=== PATIENT | male | born 1960 | race Caucasian/White ===

== ENCOUNTER 2019-07-15 14:04 | Inpatient (IN) | payer BC ==
[~2019-07-15] VITALS: Ht 182.9 cm; Wt 77.5 kg
[2019-07-15 13:35] VITALS: BP 131/95
--- NOTE | 2019-07-15 13:35 | NUR ---
PT ARRIVED FROM [facility]. PT WAS ADMITED FOR RECENT SI ATTEMPT. PT TOOK XANAX 0.5MG 70 TABS FOR RECENT BREAK-UP WITH , SHE LEFT 2 WEEKS AGO. PT STATED THAT HE WAS ABUSIVE. PT MADE SISTER DPOA AT [facility], HIS WAS PRIOR. PT DENIES ANY SI AT THIS TIME. PT PLEASANT AND ABLE TO ANSWER QUESTIONS. PT LAYED DOWN IN BED AND HAS EYES CLOSED. PT STATED HE DID HAVE ISSUES WITH TALKING LOUDLY, VERTIGO, AND NOT ABLE TO WALK. PT STATED NOW HE DOESN'T HAVE ANY OF THOSE SYMPTOMS, THEY WENT AWAY THIS WEEK. PT HAS GLASSES. PT DENIES ANY ISSUES WITH GI OR SYMPTOMS. SKIN INTACT. DENIES ANY SUBSTANCE ABUSE. STATED THIS WAS FIRST ATTACK.
--- NOTE | 2019-07-15 17:30 | NUR ---
PT DIDN'T WANT TO HAVE BED ALARM ON. PT STATED IF WE CAN'T TURN IT OFF COMPLETLEY HE CAN GO. ENSURED PT THAT BED AUTOMATICALY TURNS ON. PT STATED HE JUST DOESN'T WANT TO BOTHER ANYONE. PT VERY UNSTEADY ON FEET PER SISTER. PT ALMOST FEEL BACK ON A NURSE THIS SHIFT. PT UNSTEADY WITH GAIT. PT DIDN'T WANT TO EAT DINNER. PT DRINKING OUT OF A STRAW IN PITCHER, PT COUGHED AFTERWARDS. ENCOURAGED PT TO TILT CHIN DOWN WHEN SWALLOWING.
--- NOTE | 2019-07-16 02:46 | NUR ---
1909-Report received from day shift nurse and care assumed. Jamar was concerned about talking with her sister, and she did call him tonite, as he needs a cell phone bi consultant. He laid in his bed tonite, declined to come out of his room tonite for socialization or a snack, but he did drink water at his bedide. He talked in a loud voice when talking, denied any pain or any thoughts to harm himself or any depression. He was compliant with his HS medications after wanting and explained what the names were and the reason. He refused to allow help with getting into a gown tonite, sleeping in his clothing, after talking with him once again, saying "No, I am allright". He awakened at 0100 and said he had to call someone and asked if it was 6 oclock yet. A/O x 2/3, and noted confused/forgetful at times, not knowning how to put the phone to his ear the two times he used it. She slept sound tonite.
[2019-07-16 08:57] VITALS: BP 137/84
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
--- NOTE | 2019-07-16 11:10 | NUR ---
ASSUMED CARE AT 0700 THIS MORNING. ARGUMENATIVE WITH MEDICATIONS THIS MORNING. HE DID END UP TAKING HIS ORAL MEDICATIONS. HE REFUSED THE FLU SHOT AND THE SUPPOSITORY. HE DOES NOT LIKE THE BED ALARM ON BUT IS VERY UNSTEADY ON HIS FEET. HE WAS PLACED IN A W/C DUE TO HIS UNSTEADY GAIT. HE DID ACCEPT THE W/C A MEANS TO GET AROUND. DID NOT ATTEND MORNING GROUP BUT RETURNED TO HIS ROOM INSTEAD DURING THAT TIME. DOES ELUDE TO SI WHEN HE LEAVE HERE BUT DOES NOT STATE A DEFINITE PLAN AT THIS TIME. NO NOTICE OF HI OR AVH NOTED THIS MORNING.
[2019-07-16 19:53] VITALS: BP 136/70
[2019-07-16 19:55] VITALS: BP 157/99
[2019-07-16 22:04] VITALS: BP 157/99
--- NOTE | 2019-07-17 04:50 | NUR ---
ASSESSMENT: PT REMAIN ALERT AND ORIENT TIMES FOUR. DID NOT COME OUT OF ROOM DURING THIS SHIFT. DID GO TO THE BR WITH WALKER AND SBA. DENIES PAIN, SOB AND N/V. COMSULT FOR DR. TAMMY GONZALES, MESSAGE LEFT ON ANSWERING MACHINE. REFUSES FLU VACCINATION. SLOW PROGRESS TOWARDS DC GOALS, WILL CONTINUE TO MONITOR.
[2019-07-17 09:26] VITALS: BP 131/84
--- NOTE | 2019-07-17 15:50 | NUR ---
HOT PLATE PRESS OPERATOR charged patients cell phone without powering on, as he has requested access to his contact list to make phone calls. Patient informed his phone is now charged and back in his locker. Plans to ask for help to access contacts tomorrow 07/18.
--- NOTE | 2019-07-17 18:02 | NUR ---
ASSUMED CARE OF PATIENT AT 0715, PATIENT ALERT AND ORIENTED X 4. PATIENT HAS LEFT SIDE WEAKNESS, USES W/C TO GET AROUND. PT/OT WORKED WITH THE PATIENT TODAY. PATIENT DENIES PAIN THIS SHIFT. PATIENT OUT OF ROOM FOR MEALS, AND MOSTLY IN BED DURING THE DAY. PATIENT WAS CALM ALL SHIFT. WILL CONTINUE TO MONITOR.
[2019-07-17 19:32] VITALS: BP 142/93
--- NOTE | 2019-07-18 04:20 | NUR ---
1909-Report received by day shift nurse and care assumed. The pt. was in his room lying down, said he had a good day. He had no c.o. pain, was calm, cooperative, pleasant affect. He slept well tonite and used all fall prevention measures well.
--- NOTE | 2019-07-18 06:35 | NUR ---
The pt. had a moderate very loose brown-green stool this morning and said he wants his stool hardener today. (lactobacillus).
--- NOTE | 2019-07-18 07:13 | NUR ---
This morning the pt. was in the day room and drinking with a plastic cup he had gotten from his room. He saw it had initials on it and said this is not mine, go get mine". The TELEGRAPH EQUIPMENT MAINTAINER said I'll go get a new one which she did, and filled it up with ice water. He began then to shout at the TELEGRAPH EQUIPMENT MAINTAINER "I had diahhrea today that cup caused it! And I told you to get mine. You are lazy." He repeated "You're lazy" several times looking at the TELEGRAPH EQUIPMENT MAINTAINER. He was talked with about not yelling and with such words too and he would stop for a few seconds but start yelling loudly again "but they're lazy". He went back to his room then.
[2019-07-18 10:55] VITALS: BP 125/82
[2019-07-18 12:37] VITALS: BP 125/82
--- NOTE | 2019-07-18 12:47 | NUR ---
ASSUMED CARE AT 0700 THIS MORNING. PT. UP AND ON THE UNIT FOR MEALS ONLY. HE DID NOT EAT BREAKFAST. DOES NOT ATTEND GROUPS AT THIS TIME. HE RETURNS TO HIS BE INSTEAD. HE HAD N&V THIS MORNING AND WAS GIVEN ZOFRAN PRN FOR THAT. HE SEEMED TO BETTER. HE DID COME OUT AND EAT LUNCH BEFORE RETURNING TO HIS MEAL. TOOK HIS MEDICATIONS WITHOUT DIFFICULTY. DID SPEND SOME TIME TALKING WITH DR. BLUNT IN HIS OFFICE. HE WANTED TO GET NUMBERS OFF HIS PHONE TODAY. THIS RN ASSISTED HIM WITH THAT. HE SPENT MOST OF HIS TIME ALONE IN HIS ROOM WHEN NOT TALKING TO OR EATING.
[2019-07-18 19:17] VITALS: BP 113/73
--- NOTE | 2019-07-19 04:25 | NUR ---
Jamar was in bed at the evening shift start last evening. He said he had friends visit today, noted with a sense of humor with development writer when talking with him. He said he had a "good day" overall and talk with the Doctor "went well". He had no c.o. pain voiced and was medication compliant. He awakened at about 0200 and when staff were rounding he said "I think I heard animals in the ceiling in the bathroom a while ago and that's why my roomate woke up just now too". He returned to a good sleep and used fall precaution measures needed.
[2019-07-19 09:31] VITALS: BP 140/85
--- NOTE | 2019-07-19 14:25 | NUR ---
PATIENT ALERT AND ORIENTED AND TALKING ON PHONE THIS AM. SISTER VISITED THIS MORNING. PATIENT COOPERATIVE BUT LIKE RETURNING TO HIS ROOM AND SLEEPING THIS AFTERNOON. PATIENT CONTINUES TO USE WHEELCHAIR FOR MOBILITY.
--- NOTE | 2019-07-19 15:17 | NUR ---
Devonte called and spoek with pt's son Hal but he would like Luisa ( spouse) to assist first. DEVONTE called her [phone] and left a VM requesting assitance with d/c plans
[2019-07-19 20:01] VITALS: BP 113/83
[2019-07-19 20:36] VITALS: BP 113/83
--- NOTE | 2019-07-20 02:42 | NUR ---
ASSESSMENT: PT REMAIN ALERT AND ORIENT TIMES THREE. DENIED HALLUCINATIONS (AUDIBLE AND VISIBLE) DURING THE NIGHT. DENIES PAIN, SOB AND N/V. VERY COOPERTIVE. SLEPT MOST OF THE NIGHT. PLEASANT AND NO SI/HI ACTIVITIES. VSS, AFEBRILE. DID NOT COME OUT OF ROOM DURING THIS SHIFT. GOOD PROGRESS TOWARDS DC GOALS, WILL CONTINUE TO MONITOR.
[2019-07-20 09:18] VITALS: BP 167/90
--- NOTE | 2019-07-20 09:25 | NUR ---
ASSUMED CARE AT 0700 THIS MORNING. PT. IN BED BUT GOT UP FOR BREAKFAST. AT 0900 MEDS WERE PRESENTED TO HIM. HE WANTED TO HOLD THEM AND TAKE THEM LATER. THIS RN KEPT THE MEDS AND TOLD HIM TO CONTACT ME WHEN HE DECIDED HE CAN TAKE THEM. HE STATED "ABOUT 1 HOUR AFTER THE MEAL, SO I WON'T GET SICK". HE IS AWAKE, ALERT, ORIENTED TIMES 4. WHEN ASKED IF HE COULD STAY OUT OF HIS ROOM AND ATTEND MORNING GROUP HE REPLIED, "I GO TO A GROUP IN THE AFTERNOON, THAT IS ENOUGH". WITH THAT STATEMENT, HE RETURNED TO HIS BED IN HIS ROOM. HE IS DENYING SI/HI AT THIS TIME. HE IS NOT TALKING ABOUT HIS AVH AT THIS TIME EITHER. HE IS SECLUSIVE IN HIS ROOM MOST OF THE TIME. HE INTERACTS UPON APPROACH MOSTLY. WILL INITIATE CONVERSATION WHEN HE WANTS TO UTILIZE THE PHONE OR ON A NEEDS ONLY BASIS.
[2019-07-20 14:58] VITALS: BP 137/90
[2019-07-20 20:08] VITALS: BP 123/80
--- NOTE | 2019-07-20 22:22 | NUR ---
ASSUMED CARE OF THE PT AT 191 PM. THE PT WAS IN BED WHEN THIS DENTISTRY TEACHER CAME ON DUTY. ALERT ET ORIENTED X 2-3. MAKES NEEDS KNOWN. DENIES ANXIETY AND DEPRESSION. DENIES SI, HI, A/V HALLUNICATIONS. DENIES RACING THOUGHTS AND NIGHTMARES. TOOK HIS HS MEDICATIONS WITHOUT ANY DIFFICULY. REMAINS ON 12 MINUTE CHECKS FOR HIS SAFETY.
--- NOTE | 2019-07-21 03:35 | NUR ---
WENT INTO THE PT'S BATHROOM TO HELP THE OTHER PT, WHEN WALKING OUT OF THE ROOM, THE PT STATED THAT HE HAD BEEN HEARING THINGS IN THE CEILING OF THE BATHROOM WHEN NO ONE IS THERE, "LIKE AN ANIMAL."
[2019-07-21 08:53] VITALS: BP 135/83
--- NOTE | 2019-07-21 15:56 | NUR ---
PATIENT ALERT AND ORIENTED AND CONCERNED ABOUT HIS PERSONAL BELONGS. HE WOULD LIKE TO KNOW IF HE HAS CREDIT CARDS IN HIS PERSONAL BELONGINGS. STAFF ARE INVESTIGATING LOCATION OF HIS CREDIT CARDS. SLEPT 9.6 HOURS AND IS PLACED ON ROOM LOCK OUT DUE TO NON-PARTICIPATION IN GROUPS AND SPEEDING MOST OF THE DAY IN HIS ROOM SLEEPING. PATIENT USING WC TO TRANSPORT HIMSELF ON THE PSYCH UNIT. PATIENT SEEING NEUROPSYCHOLOGIST THIS AFTERNOON.
--- NOTE | 2019-07-21 17:41 | NUR ---
TRISTAN spoke extensively with pt's sister Roxanne who wants to be DPOA. [phone]. Pt has expressed to her that he wants more physical therapy and would like to have SNF be explored. TRISTAN provided Roxanne with a list of SNF's in both [place] to call and consider, this included verifying if they took his payor source. TRISTAN also advised her to consult with an research attorney about the financial concerns they had.
[2019-07-21 19:48] VITALS: BP 117/80
--- NOTE | 2019-07-22 00:10 | NUR ---
THE PT'S BED ALARM WENT OFF, THIS DEPUTY SHERIFF WENT TO HIS ROOM AND FOUND HIM WALKING TO THE BATHROOM, HAS A VERY UNSTEADY GAIT. LIMPING ON THE LEFT SIDE. THE PT ALMOST FELL, AFTER GOING TO THE BATHROOM, ASSISTED THE PT BACK TO BED, TURNED ON THE BED ALARM. REMAINS ON 12 MINUTE CHECKS FOR THE PT'S SAFETY.
--- NOTE | 2019-07-22 02:48 | NUR ---
ASSUMED CARE OF THE PT AT 191 PM. THE PT WAS LYING IN BED WHEN THIS WATER RESOURCE AGENT CAME ON DUTY. CONTINUES TO HAVE A FLAT AFFECT. RATES HIS DEPRESSION A 6/10 AND HIS ANXIETY A 4/10. DENIES A/V HALLUNICATIONS, SI/HI, RACING THOUGHTS AND NIGHTMARES. TOOK HIS HS MEDICATIONS WITHOUT ANY DIFFICULTY. DENIED PAIN. REMAINS ON 12 MINUTE CHECKS FOR HIS SAFETY.
[2019-07-22 08:53] VITALS: BP 139/93
--- NOTE | 2019-07-22 14:10 | NUR ---
PATIENT ALERT AND ORIENTED AND INDEPENDENTLY TRANSFERS AND TRANSPORTS HIMSELF IN A WHEELCHAIR. PATIENT ON ROOM LOCK OUT TO ENCOURAGE PARTICIPATION IN GROUPS. PATIENT CAN BE IMPULSIVE WITH TRANSFERS AND UNSAFE. PATIENT OTHERWISE COMPLIANT WIHT POC.
--- NOTE | 2019-07-22 14:13 | NUR ---
Date of Admission: 07/15/19 Date of Activity Therapy Assessment: 07/22/19 Activity Goal: Increase leisure awareness and reality orientation Initial Goal: 1 Group activity/day Weekly progress towards goal: On track Group participation level: Varies Behaviors observed: Participation has become more consistent over the last few days as he has been given room lockout orders. Patient continues to speak in a loud voice, often interrupting other patients or staff, but does engage socially. Patient has not made depressive or suicidal statments during groups. Plan: No change towards goal
[2019-07-22 20:15] VITALS: BP 120/82
--- NOTE | 2019-07-23 05:31 | NUR ---
1909-Report received from the day shift nurse and care assumed. He had a bright affect talking and said he had a good day. He had no thoughts to harm himself he said. He was medication compliant and then slept well in the nite all nite with fall precaution measures in place.
[2019-07-23 06:52] LABS: ABSOLUTE NEUTROPHILS 4.3 thou/uL (1.4-8.2); BASOPHILS 0.9 % (0.0-2.0); EOSINOPHILS 2.4 % (0.0-3.0); HEMATOCRIT 45.2 % (42.0-52.0); LYMPHOCYTES 24.9 % (24.0-44.0); MCH 29.3 pg (26.0-34.0); MCHC 33.3 g/dL (28.0-37.0); MONOCYTES 8.2 % (1.0-8.0); PLATELET COUNT 294 thou/uL (150-400); POLYS 63.6 % (36.0-66.0); RBC 5.13 mil/uL (4.50-6.00); RDW 14.7 % (10.5-14.5); WBC 6.7 thou/uL (4.0-11.0)
[2019-07-23 07:25] LABS: CALCIUM 8.9 mg/dL (8.5-10.1); CREATININE 0.8 mg/dL (0.7-1.3); MAGNESIUM 1.9 mg/dL (1.8-2.4); POTASSIUM 3.7 mmol/L (3.5-5.1)
[2019-07-23 13:12] VITALS: BP 155/100
--- NOTE | 2019-07-23 15:40 | NUR ---
07:03 report received from overnight shift. Patient ate breakfast, took medication without incident. Patient attemded group minimal participation. Patient had visitor from visit went well, asked for medication information. Patient calm, cooperative ambulates well.
--- NOTE | 2019-07-23 15:56 | NUR ---
0705 report received from overnight shift, patient ate breakfast and took medication without incident. Patient is very aware of the medications he takes. Patient participated in group, patient got upset because he felt he needed to keep using the phone. Patient is easily redirectable of unit rules however he has an attitude about some of the rules.
--- NOTE | 2019-07-23 16:10 | NUR ---
Sw spoke with pt's sister , who is insistant that a referral be sent to an acute rehab. SW sent one to [facility] and [facility].
[2019-07-23 16:21] VITALS: BP 155/100
[2019-07-23 20:15] VITALS: BP 132/90
--- NOTE | 2019-07-23 23:14 | NUR ---
PT ASLEEP IN BED UPON ARRIVAL OF SHIFT. PT AWAKENED FOR ONE HS MED AND RETURNED TO SLEEP. BLUNTED AFFECT [facility] CONTACT.
[2019-07-24 08:55] VITALS: BP 137/96
[2019-07-24 09:25] VITALS: BP 137/96
--- NOTE | 2019-07-24 12:55 | NUR ---
0703 report recieved from overnight shift, patient ate breakfast participated in group. Patient took medication without imcident. Patient had visitor from sister who is know is now his dyer helper. She wants to send him to another facility who will work on his extremities. Patient was very agitiated at the visit. He stated that he knows this the best thing for him. Patient has been cooperative.
--- NOTE | 2019-07-24 15:43 | NUR ---
TRISTAN met with family and discussed their plans. [facility] has c,inically accepted this pt and will be checking with his insurance and can d/c as early as tomorrow.
[2019-07-24 21:09] VITALS: BP 124/90
--- NOTE | 2019-07-24 22:59 | NUR ---
PT ASLEEP UPON ARRIVAL TO SHIFT. PT AWAKENED FOR HS MEDS, PT DECLINED SNACK. PT HAD [facility] CONTACT AND SMILING WHILE TALKING TO STAFF ABOUT HIS VS AND HOW HE HAD PIZZA FOR DINNER.
--- NOTE | 2019-07-25 13:22 | NUR ---
Assess due to length of stay. Pt admit to [facility] for recent suicide attempt, depression. ST follows for swallowing, pt allowed regular consistency but only requests [place] citizen toast/hamburger/pizza at meals despite encouragement to try new foods. Does take a vitamin. Will trial a supplement Ensure to see if more receptive to a different beverage. Wt is stable, healthy BMI of 23.6. Low nutrition risk
--- NOTE | 2019-07-25 16:00 | NUR ---
TRISTAN sent updates to [facility] and spoke with pt and his sister several times today. Still waiting for insurance to accpet this pt.
--- NOTE | 2019-07-25 18:33 | NUR ---
Up in unit per wheelchair. Alert and orientated X4. Denies pain, SI, HI. Train Driver equal and strong. Conversive with peers and staff. Bright affect. In room resting at times without s/o distress. Breath sounds clear t/o, bilaterally equal. Color pink with brisk capillary refill. Active bowel sounds over soft rounded abdomen. Appropriate questions.
[2019-07-25 19:34] VITALS: BP 120/78
--- NOTE | 2019-07-25 23:26 | NUR ---
Care assumed of patient at 1915: Patient alert and oriented x4. Patient has occasional forgetfulness and needs reminders. Patient will also ask questions knowing that he forgot what was said. Patient resting in bed at start of shift. Patient calm, pleasant and cooperative. Patient denies pain or discomfort. Patient denies SI/HI/AH/VH. No s/s of delusional or paranoia behaviors observed. Declined HS snack. Took HS medication whole without difficulty. Patient resting quietly in bed at this time.
[2019-07-26 07:22] VITALS: BP 145/104
[2019-07-26 10:26] VITALS: BP 145/104
--- NOTE | 2019-07-26 12:28 | NUR ---
0702 Received report from overnight shift, patient ate breafast and took medication without incidence. Patient had vistor from sister who mad patient irritable. Upset about placement. Patient particpated in groups and was cooperative the rest of the shift.
[2019-07-26 19:54] VITALS: BP 132/86
--- NOTE | 2019-07-26 22:53 | NUR ---
ASSUMED CARE OF THE PT AT 1914 PM. ALERT ET ORIENTED X 2, BUT FORGETFUL AT TIMES. TOOK HIS HS MEDICATION WITHOUT ANY DIFFICULTY. THE PT HAS BEEN LYING IN BED SINCE THIS WRTIER CAME ON DUTY AT 1914 PM. DENIES ANXIETY, DEPRESSION, SI/HI/A/V HALLUNICATIONS. REMAINS ON 12 MINUTE CHECKS FOR HIS SAFETY.
--- NOTE | 2019-07-27 03:41 | NUR ---
THE PT APPEARS TO BE SLEEPING QUIETLY IN BED AT THIS TIME. REMAINS ON 12 MINUTE CHECKS FOR HIS SAFETY.
--- NOTE | 2019-07-27 05:37 | NUR ---
THE PT SLEPT 9.2 HOURS LAST NIGHT.
[2019-07-27 07:41] VITALS: BP 121/76
[2019-07-27 07:48] VITALS: BP 125/87
--- NOTE | 2019-07-27 18:57 | NUR ---
Awake without s/o distress. Alert and orientated X4. Denies SI/HI, pain. Up in w/c, able to toilet himself. Breath sounds clear t/o bilaterally equal. Color pink with brisk capillary refill and palpable peripheral pulses, no edema. Reg HR ausculatated. Active bowel sounds over soft, flat abdomen. Participating in group and watching TV. Visitors present. Currently resting in bed.
[2019-07-27 19:49] VITALS: BP 128/86
--- NOTE | 2019-07-27 22:05 | NUR ---
ASSUMED CARE OF THE PT AT 1914 PM. ALERT ET ORIENTED X 3. THE PT TOOK A SHOWER THIS AM. 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 RATES HIS ANXIETY A 4/10 AND HIS DEPRESSION A 5/10. DENIES ANXIETY, DEPRESSION, A/V HALLUNICATIONS. REMAINS ON 12 MINUTE CHECKS FOR HIS SAFETY.
--- NOTE | 2019-07-28 01:47 | NUR ---
THE PT APPEARS TO BE RESTING QUIETLY IN BED AT THIS TIME. REMAINS ON 12 MINUTE CHECKS FOR HIS SAFETY.
--- NOTE | 2019-07-28 05:02 | NUR ---
the pt slept 9.0 hours last night.
[2019-07-28 09:24] VITALS: BP 137/99
--- NOTE | 2019-07-28 13:14 | NUR ---
Alert without s/o distress. Denies SI/HI, pain. Orientated X4. Able to ambulate in room and t/o unit in w/c. Cooperative. Color pink with brisk capillary refill and palpable peripheral pulses. Reg HR. Breath sounds clear t/o, bilaterally equal. Hyperactive bowel sounds over soft, rounded abdomen. States he thinks he is either transferring or going home today.
[2019-07-28] MEDS ORDERED: LOPRESSOR50 PO (15:50)
[2019-07-28] MEDS ORDERED: NORVASC10 MG PO (15:51)
[2019-07-28] MEDS ORDERED: BENICAR40 MG PO (15:52)
[2019-07-28] MEDS ORDERED: PROZAC40 MG PO (15:54)
[2019-07-28] MEDS ORDERED: FLORANEX GRANU1 EACH PO (15:54)
[2019-07-28] MEDS ORDERED: PRENATAL PO (15:55)
[2019-07-28] MEDS ORDERED: PEPCID20 MG PO (15:55)
--- NOTE | 2019-07-28 16:04 | NUR ---
Pt will d/c to [facility] [phone] ([phone] and will be picke miriam at 4:40pm Called sister and told pt.
--- NOTE | 2019-07-31 22:21 | D ---
[facility] [place] [address] DISCHARGE SUMMARY Name: CASEY AC Room #: 522A-A [facility] IN .R.#: [id number] Admission: 07/15/19 Attend Phys: Neo Lamar DO Discharge: 07/28/19 Date of : 60 Report #: [id number] THIS REPORT FOR: //name// CC: Neo Lamar [employer] unknown DATE OF SERVICE: 07/28/2019 PSYCHIATRIC DISCHARGE SUMMARY ATTENDING PHYSICIAN: Neo Lamar DO. MODEL ARTISTS': Job Spears MD. 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 The patient had a resolved adjustment reaction led to his suicide attempt. MEDICAL DIAGNOSES: Status post respiratory failure, intubation with mechanical ____ ventilation aspiration pneumonia due to Xanax overdose, history of cerebellar stroke with cognitive and speech deficits from 10/2018. The patient is incapacitated, hypertension history with borderline hypotension, bradycardia, beta gabriela held, GI prophylaxis with Pepcid. DISCHARGE PLAN: Discharging to the [facility] for acute rehabilitation. The patient is no longer confused and certainly not suicidal. Psychiatric and medical care and further discharge plan will be done by the receiving facility. DISCHARGE MEDICATIONS: Metoprolol tartrate 50 mg p.o. b.i.d., hold for pulse less than 60, amlodipine besylate 10 mg p.o. daily for hypertension, olmesartan medoxomil 40 mg p.o. daily, fluoxetine 40 mg p.o. daily. He is on a probiotic, acidophilus bulgaricus 1 packet p.o. daily, famotidine 20 mg p.o. b.i.d., and vitamin. REASON FOR ADMISSION: The patient was a transfer from [facility], admitted there on 06/24/2019 with complications of Xanax overdose including respiratory failure, aspiration pneumonia, deconditioning, etc. HOSPITAL COURSE: The patient was [facility], taken a few days to get oriented to things. I took the approach for doing a global evaluation. [employer] for this admission was Dr. Nilson Nance. Diagnosis of vascular dementia was made. The patient will require 24/ assistance and care. His DPOA was enacted. At times, the patient would become irritated, not wanting to follow the advice. I really think at this point, he needs his DPOA to be making decisions for him. She was in favor of trying to maximize his improvement in gait. I would say the patient has had a number of [address] [place] [address] DISCHARGE SUMMARY Name: CASEY AC Room #: 522A-A [facility] IN ..#: [id number] Admission: 07/15/19 Attend Phys: Neo Lamar, Discharge: 07/28/19 Date of : 60 Report #: [id number] problems including an estranged with some questionable financial arrangements being made. The patient tolerated the hospitalization well. No suicidal or homicidal at the time of discharge. VITAL SIGNS: On the day of discharge are as follows: Temperature 36.4, pulse 76, respirations 18, BP 137/99, O2 sat 99%. MUSCULOSKELETAL: Nonambulatory. He needs contact guard to his wheelchair mostly. MENTAL STATUS EXAMINATION: This is a well-developed, slightly disheveled male, appearing stated age. Attention limited. Concentration limited. Speech slowed. Thought process is linear and goal directed. Thought content focused on discharge. No psychomotor agitation or psychomotor retardation. Denied SI or HI. Denied hopelessness, helplessness. Denied homicidal intent or plan. Denied auditory, visual, or tactile hallucinations. Memory noted to have impairment. His longest admission was ____ treated with Neuropsych testing. Insight limited. Judgment limited. Fund of knowledge, no greater than average. PROGNOSIS: For this patient is guarded given the cerebellar stroke in October of this year, the suicide attempt, history of prior cocaine use, the marriage is breaking up, and the need at this point for 24/ care and supervision. <ELECTRONICALLY SIGNED> By: Neo Lamar DO 07/31/19 [id number] Neo Lamar DO /nt
== END 2019-07-28 17:00 | DRG 885 ==
LOC: SBH 14:04
PROVIDERS: Nurse Practitioner; ADMIT Psychiatry & Neurology Psychiatry
DX: F32.2 Major depressive disorder, single episode, severe without psychotic features (principal); J69.0 Pneumonitis due to inhalation of food and vomit; J96.90 Respiratory failure, unspecified, unspecified whether with hypoxia or hypercapnia; F43.20 Adjustment disorder, unspecified; I10 Essential (primary) hypertension; R26.9 Unspecified abnormalities of gait and mobility; T42.4X1A Poisoning by benzodiazepines, accidental (unintentional), initial encounter; Y92.89 Other specified places as the place of occurrence of the external cause; Z86.73 Personal history of transient ischemic attack (TIA), and cerebral infarction without residual deficits; Z79.899 Other long term (current) drug therapy; Z82.49 Family history of ischemic heart disease and other diseases of the circulatory system
CPT/HCPCS: 10880